=== PATIENT | male | born 1945 | race Caucasian/White ===

== ENCOUNTER 2019-10-13 07:48 | Outpatient (CLI) | payer MEDICARE, OTHER, SELFPAY ==
--- NOTE | 2019-10-13 07:54 | CT_ITS ---
WS: [id number] CT CHEST WITH INTRAVENOUS CONTRAST HISTORY: ABNORMAL XRAY WITH SINGLE PULMONARY NODULE TECHNIQUE: Contiguous 5 mm axial imaging performed on the thorax. Coronal and sagittal reformats are submitted. All CT scans at [facility] use at least one of these dose optimization techniq ues: automated exposure control; mA and/or kV adjustment per patient size (includes targeted exams wh ere dose is matched to clinical indication); or iterative reconstruction. CONTRAST: Omnipaque 300; 95 mL IV. DLP: 847.37 mGycm COMPARISON: Chest radiograph 10/05/2019 Lungs and central airway: Lungs are hyperexpanded with changes of emphysema. Subpleural nodule LEFT l ower lobe measures 1.4 x 1.3 x 1.4 cm. Masses in the posterior superior segment and abuts the pleura. There is adjacent small reactive of pleural fluid. There is an additional 5 mm nodule LEFT upper lob e, image 33 of series 3. Pleura: Small layering LEFT pleural effusion. Heart and pericardium: Normal size heart. No pericardial effusion. Mediastinum and luisito: No mediastinum or hilar adenopathy. Vessels: Normal size aortic and pulmonary artery. Chest wall and lower neck: Small axillary lymph nodes. No enlarged lymph nodes. Upper abdomen: Visualized liver and gallbladder are negative. There is mild thickening of the LEFT ad renal gland no discrete mass. Osseous structures: Degenerative disc disease and osteophytes throughout the thoracic spine. No osteo blastic or osteolytic bone disease. CT/CT chest w con* [id number] IMPRESSION: 1. LEFT lower lobe subpleural nodule measures 1.4 x 1.3 x 1.4 cm with adjacent small effusion. Suspicious for neoplasm. Recommend PET/CT imaging for further evaluation. 2. Additional 5 mm nodule LEFT upper lobe indeterminate for malignancy. 3. No adenopathy. 4. Mild thickening and hyperplasia LEFT adrenal gland. This can also be reeval uated by PET/CT. 5. Mild emphysema.
[2019-10-13 08:25] LABS: Blood Urea Nitrogen 8 mg/dL (8-23)
[2019-10-13] MEDS: iohexol 300 mg/mL 100 mL Btl IV (08:39)
== END 2019-10-13 07:49 | disposition home or self-care (01) ==
LOC: RADWPI 07:54
PROVIDERS: Family Provider Family Medicine; PCP Family Medicine; Visit Provider Family Medicine
DX: R91.8 Other nonspecific abnormal finding of lung field (principal); R91.1 Solitary pulmonary nodule; J90 Pleural effusion, not elsewhere classified; J43.9 Emphysema, unspecified
CPT/HCPCS: 71260; 82565; 84520; Q9967

== ENCOUNTER 2019-11-23 11:04 | Outpatient (CLI) | payer MEDICARE, OTHER, SELFPAY ==
--- NOTE | 2019-11-23 14:19 | PFTS_ITS ---
Date of Study:11/23/19 Date of Dictation: MECHANICS: Forced vital capacity (FVC) is normal. Forced expiratory volume in one second (FEV1) is reduced. FEV1/FVC is reduced. FLOW VOLUME LOOP: Reduced flow at all lung volumes with significant scooping. LUNG VOLUMES: Total lung capacity (TLC) is normal. Residual volume (RV) is elevated. DIFFUSING CAPACITY FOR CARBON MONOXIDE: Moderately reduced. INTERPRETATION: The pulmonary function tests are consistent with moderate obstruction. Lung volumes are consistent with air trapping. Gas exchange (DLCO) is moderately reduced. MTDD
== END 2019-11-23 11:05 | disposition home or self-care (01) ==
LOC: RT 11:05
PROVIDERS: PCP Family Medicine; Visit Provider Internal Medicine Critical Care Medicine
DX: R91.1 Solitary pulmonary nodule (principal)
CPT/HCPCS: 94010; 94726; 94729

== ENCOUNTER 2019-11-26 06:04 | Day surgery (SDC) | payer MEDICARE, OTHER, SELFPAY ==
[2019-11-25 15:41] VITALS: BMI 21.5
[2019-11-26] VITALS (8 sets, daily range): BP systolic 99–133; BP diastolic 63–75; PULSE 91–98; RESP 16–20; TEMP 36.7–36.9; O2SAT 93–98
[2019-11-26] MEDS: sodium chloride 0.9% 1,000 ML 30 ML IV (06:41)
--- NOTE | 2019-11-26 06:41 | P.ANESASSM_ITS ---
Pre-Anesthetic Assessment Pre-Anesthetic Assessment: Height/Weight: Height 1.78 m Weight 68.039 kg Temp Pulse Resp BP Pulse Ox 98.4 F 98 18 133/71 98 11/26/19 06:28 11/26/19 06:28 11/26/19 06:28 11/26/19 06:28 11/26/19 06:28 Preop Diagnosis: suspected lung cancer Proposed Procedure: Operation Date: 11/26/19 07:00 Proposed Procedures p Bronchoscopy with a Thoracentsis(Not Applicable) - Jordy Schmidt MD s Ebus(Not Applicable) - Jordy Schmidt MD Familial anesthetic complications: None Was Beta Casandra taken within 24 hours: N/A Last intake: Intake Last Liquid Date 11/25/19 Last Liquid Time 18:00 Last Solid Date 11/25/19 Last Solid Time 18:00 Social: Social History: Tobacco and No alcohol Exam: Pre-Anes Outpt Exam: alert, oriented x 3, clear to auscultation bilat erally and regular rate & rhythm Airway: Cervical ROM: WNL MP: 3 Dentition: Other (missing) Pulmonary: Pulmonary: COPD CV/HEM: CV/HEM: HTN : : None reported Hepatic: Hepatic: None reported GI: GI: GERD Metabolic: Metabolic: Hyperlipidemia Musc/skel: Musc/skel: None reported Neuropsych: Neuropsych: None reported Anesthetic Plan: ASA status: 3 Anesthesia: MAC Risk of > 500 ml blood loss (7ml/kg in children): No PFSH Anesthesia PFSH: Medical History COPD (chronic obstructive pulmonary disease) DVT (deep venous thrombosis) GERD (gastroesophageal reflux disease) HTN (hypertension) Hyperlipidemia Lung nodule Surgical History History of back surgery Family History Other CAD (coronary artery disease) Social History Smoking and tobacco status: current every day smoker cigarettes Packs smoked per day: 1 Years cigarettes smoked: 45 Second hand smoke exposure: Yes Alcohol intake: current Alcohol type: wine Lives independently: Yes Household members: spouse Marital status: Life Partner Current occupational status: retired History of recent travel: No Current gender identity: Male Data Anesthesia Cardiac Studies: No Data to Display
--- NOTE | 2019-11-26 06:43 | W.PM.OPSUD ---
Surgery/Procedure H&P Update DATE OF PROCEDURE: November 26, 2019 DATE H&P PERFORMED: 11/12/19 H&P UPDATE INFORMATION: I have reviewed H&P completed within last 30 days, I have examined patient prior to procedure and No changes to prior documentation PREOP DIAGNOSIS: suspected lung cancer PLANNED PROCEDURE: Bronchoscopy with inspection of the airway, possible endobronchial transbronchial biopsies, bronchoalveolar lavage, left-sided thoracentesis and control of bleeding. Operation Date: 11/26/19 07:00 Proposed Procedures p Bronchoscopy with a Thoracentsis(Not Applicable) - Jordy Schmidt MD s Ebus(Not Applicable) - Jordy Schmidt MD
--- NOTE | 2019-11-26 08:02 | P.OP_ITS ---
Operative Report Date of procedure: November 26, 2019 Pre-op Diagnosis: suspected lung cancer/left-sided pleural effusion Post-op diagnosis: same Brief History: 74-year-old gentleman with suspected lung malignancy and left- sided pleural effusion came in for left-sided thoracentesis and endobronchial sound guided transbronchial depression of left hilar lymph nodes. Procedure: Name of the procedure: Left thoracentesis. Indication: Suspicion for malignant pleural effusion Anesthetics: Local anesthesia with 1% lidocaine. IV pain medication: None. Description of the procedure: The procedure was explained to the patient in detail including the risks and a consent was obtained. The left hemithorax was scanned with ultrasound to find a safe fluid pocket. Moderate free-flowing fluid was noted. The plankton sign was positive Following identification of the fluid pocket the site was marked. The site was cleaned using sterile technique. Lidocaine 1% was injected into the skin and the subcutaneous tissue. Subsequently, the periosteum in the parietal pleural was also anesthetized using lidocaine. The pleural space was entered in the posterior axillary line in the left eighth intercostal space. Straw-colored fluid was aspirated. About 1050cc of fluid was aspirated. Sample: The pleural fluid was sent for cell count and differential, pH, protein, LDH, albumin, Gram stain and culture, fungal stain and culture, AFB stain and culture and cytology.
[2019-11-26] MEDS: cetylpyridinium Lozenge 1 EACH MUCOUS MEM (08:38)
[2019-11-26 08:39] LABS: Mononuclear %, Pleural Fluid 51 %; Polynuclear Cells, Pleural % 49 %
--- NOTE | 2019-11-26 08:49 | SUR.PHASEI ---
[id number] MOSLEY AT BEDSIDE AND DR AKHTAR AT BEDSIDE TALKED WITH PT AND WILL CALL PT'S , PT COUGHING OCCASIONALLY BUT GOOD RESP EFFORT NON LABORED SATS ON RA [phone] with no distress lung sounds bilat with diminished bases dressing to lt back d/i
--- NOTE | 2019-11-26 08:57 | PM.MISC ---
Miscellaneous Note Purpose of Documentation: Anesthesia event Note: After draining of pleural effusion and before commencing bronchoscopy, patient lost ETCO2 and had difficulty moving air. Breath sounds absent and albuterol was administered for suspected bronchospasm. However, PPV was noted to expand the abdominal cavity and accidental extubation was suspected. While anesthesia prepared for re-intubation, proceduralist was asked to place bronchoscope through ETT to confirm placement or misplacement. ETT was confirmed to be in esophagus with bronchoscoope and patient was expediently intubated using glidescope, which showed somewhat laterally displaced vocal cords. Ixnvouhrb-xykbhzy-dqwhet pressure was applied to improve visualization. With re-intubation, O2 sat quickly improved and ETCo2 was confirmed. Atropine 0.3 mg IV was given for developing bradycardia (35 bpm) OG was placed to suction gastric air and suggamadex was administered. 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 He was then extubated. patient had stable VSS in pacu and he showed no evidence of any recall of events and complained of no oral/airway damage at this time. Intraoperative events were explained to him and to the individual (mariella) who accompanied him to his surgery today. Both showed understanding of events and had no further questions. Recommend glidescope for subsequent intubations.
[2019-11-26 09:24] LABS: Appearance, Pleural Fluid CLEAR (CLEAR); Color, Pleural Fluid Pale Yellow (Pale Yellow); LDH Pleural Fluid 174 U/L; Pleural Fluid Albumin 2.8 g/dL; Triglycerides, Pleural Fluid 19 mg/dL
[2019-11-26 09:59] LABS: PATH Referal YES
== END 2019-11-26 09:06 | disposition home or self-care (01) ==
PROVIDERS: PCP Family Medicine; Visit Provider Internal Medicine Critical Care Medicine
PROC: (CPT 32554; principal; 2019-11-26 07:00)
DX: J90 Pleural effusion, not elsewhere classified (principal); J44.9 Chronic obstructive pulmonary disease, unspecified; I10 Essential (primary) hypertension; K21.9 Gastro-esophageal reflux disease without esophagitis; E78.5 Hyperlipidemia, unspecified; Z86.718 Personal history of other venous thrombosis and embolism; Z82.49 Family history of ischemic heart disease and other diseases of the circulatory system; F17.210 Nicotine dependence, cigarettes, uncomplicated
CPT/HCPCS: 32554; 12345; 80500; 82042; 82945; 83615; 83986; 84478; 87015; 87070; 87075; 87116; 87205; 87206; 87801; 88112; 88305; 89050; J0461; J2001; J2704; J3010; J3490; J3535; J7030

== ENCOUNTER 2019-12-10 08:09 | Outpatient (CLI) | payer MEDICARE, OTHER, SELFPAY ==
--- NOTE | 2019-12-10 08:17 | XR_ITS ---
WS: [id number] PA and lateral chest, 12/10/2019 Clinical Data: Pleural effusion Comparison: PA and lateral chest, 10/05/2019. Findings: There is a faint nodule overlying the midportion left seventh rib which is difficult to see . This may represent the nodule noted on the prior chest x-ray. There is elevation of the left diaphr agm with left pleural reaction. There is depression of the right diaphragm. No right lung nodules or masses are seen. The heart is normal. No pneumonia or pneumothorax is seen. The pulmonary vascularity is not increased. XR/XR chest 2V* [id number] Impression: 1. Faint nodule overlying the left seventh rib. 2. Left pleural reaction. 3. No other nodules or masses are seen in the lungs.
== END 2019-12-10 08:10 | disposition home or self-care (01) ==
PROVIDERS: PCP Family Medicine; Visit Provider Internal Medicine Critical Care Medicine
DX: J90 Pleural effusion, not elsewhere classified (principal)
CPT/HCPCS: 71046

== ENCOUNTER 2019-12-21 10:44 | Day surgery (SDC) | payer MEDICARE, OTHER, SELFPAY ==
[2019-12-18 11:42] VITALS: BMI 21.5
[2019-12-21 11:00] VITALS: BP 131/73; PULSE 97; RESP 20; TEMP 37.3; O2SAT 98
[2019-12-21] MEDS: sodium chloride 0.9% 1,000 ML 30 ML IV (11:37)
--- NOTE | 2019-12-21 11:48 | P.ANESASSM_ITS ---
Pre-Anesthetic Assessment Pre-Anesthetic Assessment: Height/Weight: Height 1.78 m Weight 68.039 kg Temp Pulse Resp BP Pulse Ox 99.1 F 97 20 H 131/73 98 12/21/19 11:00 12/21/19 11:00 12/21/19 11:00 12/21/19 11:00 12/21/19 11:00 Preop Diagnosis: suspected lung cancer/left-sided pleural effusion Proposed Procedure: Operation Date: 12/21/19 12:00 Proposed Procedures p Ebus(Not Applicable) - Jordy Schmidt MD s Thoracentesis(Not Applicable) - Jordy Schmidt MD Was Beta Casandra taken within 24 hours: N/A Last intake: Intake Last Liquid Date 12/21/19 Last Liquid Time 08:00 Last Solid Date 12/20/19 Last Solid Time 22:00 Last Intake: 00:00 Social: Social History: Alcohol (4beers a day) and Tobacco Packs per day: 1 ppd Pack years: 45 Exam: Pre-Anes Outpt Exam: alert, oriented x 3 and clear to auscultation bilaterally Airway: Submandibular: WNL Cervical ROM: WNL MP: 1 Pulmonary: Pulmonary: COPD and CABRERA CV/HEM: CV/HEM: DVT (1 year ago ) and HTN : : None reported Hepatic: Hepatic: None reported GI: GI: GERD (controlled ) Metabolic: Metabolic: None reported Musc/skel: Musc/skel: None reported Neuropsych: Neuropsych: None reported Anesthetic Plan: ASA status: 3 Anesthesia: Anesthesia Evaluation and MAC Meds/Allergies Current Medications: Current Medications Generic Name Dose Route Start Last Admin Trade Name Freq PRN Reason Stop Dose Admin Sodium Chloride 1,000 mls @ 30 ml s/hr 12/20/19 19:15 12/21/19 11:37 Sodium Chloride 0.9% IV 12/21/19 19:14 30 mls/hr .Q24H NIKOLAI Administration PFSH Anesthesia PFSH: Medical History COPD (chronic obstructive pulmonary disease) DVT (deep venous thrombosis) GERD (gastroesophageal reflux disease) HTN (hypertension) Hyperlipidemia Lung nodule Surgical History History of back surgery Family History Other CAD (coronary artery disease) Social History Smoking and tobacco status: current every day smoker cigarettes Packs smoked per day: 1 Years cigarettes smoked: 45 Second hand smoke exposure: Yes Alcohol intake: current Alcohol type: wine Lives independently: Yes Household members: spouse Marital status: Life Partner Current occupational status: retired History of recent travel: No Current gender identity: Male Data Anesthesia Cardiac Studies: No Data to Display
--- NOTE | 2019-12-21 12:18 | W.PM.OPSUD ---
Surgery/Procedure H&P Update DATE OF PROCEDURE: December 21, 2019 DATE H&P PERFORMED: 11/26/19 H&P UPDATE INFORMATION: I have reviewed H&P completed within last 30 days, I have examined patient prior to procedure and No changes to prior documentation PREOP DIAGNOSIS: suspected lung cancer/left-sided pleural effusion PLANNED PROCEDURE: Bronchoscopy with inspection of the airway, endobronchial ultrasound-guided transbronchial needle aspiration of lymph nodes, left-sided thoracentesis. Operation Date: 12/21/19 12:00 Proposed Procedures p Ebus(Not Applicable) - Jordy Schmidt MD s Thoracentesis(Not Applicable) - Jordy Schmidt MD
--- NOTE | 2019-12-21 12:58 | CT_ITS ---
WS: [id number] CT CHEST TECHNIQUE: Noncontrast CT of the chest with coronal and sagittal reformatted images. CLINICAL INFORMATION: Suspected lung malignancy status post thoracentesis with concern for pneumothor ax COMPARISON: October 13, 2019 DLP: 566.[address] scans at [facility] use at least one of these dose optimization techniques: automat ed exposure control; mA and/or kV adjustment per patient size (includes targeted exams where dose is matched to clinical indication); or iterative reconstruction. FINDINGS: Small left pleural effusion. No pneumothorax. Both lungs are well aerated. Slight atelectasis in the lingula. Stable noncalcified nodule in the left lower lobe subpleural in location measuring 10 mm. Ri ght lung is well aerated. No mediastinal or hilar lymphadenopathy. No axillary lymphadenopathy. Adrenal glands are normal. Normal GE junction. CT/CT chest wo con [id number] IMPRESSION: 1. Small left pleural effusion. No pneumothorax. 2. Stable left lower lobe subpleural pulmonary nodule measuring 10 mm. 3. No other significant changes.
--- NOTE | 2019-12-21 12:59 | PM.ACPR ---
Procedure/Consent Time out: Time Out Performed: Yes Consent: Consent for Procedure: Consent obtained from patient Procedure Narrative: Name of the procedure: Left thoracentesis. Indication: Suspicion for malignant pleural effusion Anesthetics: Local anesthesia with 1% lidocaine. IV pain medication: None. Description of the procedure: The procedure was explained to the patient in detail including the risks and a consent was obtained. The left hemithorax was scanned with ultrasound to find a safe fluid pocket. Small free-flowing fluid was noted. There was no complexity. Following identification of the fluid pocket the site was marked. The site was cleaned using sterile technique. Lidocaine 1% was injected into the skin and the subcutaneous tissue. Subsequently, the periosteum in the parietal pleural was also anesthetized using lidocaine. The pleural space was entered in the posterior axillary line in the left seventh intercostal space. Straw-colored fluid was aspirated. About 160 cc of fluid was aspirated. Sample: The pleural fluid was sent for cell count and differential, pH, protein, LDH, albumin, Gram stain and culture, fungal stain and culture, AFB stain and culture and cytology. Complication: Postprocedure, the patient started complaining of inspiratory chest pain. I will obtain a CT scan to evaluate for pneumothorax as well as the left-sided lung lesion he had in the past which is likely in the process of resolving. Acute Procedures Epistaxis Control: Time out performed: Yes
[2019-12-21 13:02] VITALS: BP 149/78; PULSE 90; RESP 20; TEMP 37.3; O2SAT 97
--- NOTE | 2019-12-21 13:03 | SUR.PHASEII ---
DRESSING IN PLACE .NO BLOOD OR DRAINAGE NOTED.
[2019-12-21 13:23] LABS: Body Fluid Polynuclear #Cells 0.035 10^3/uL; Body Fluid WBC 2264 /uL; Monocytes # Body Fluid 2.229 10^3/uL; RBC, Body Fluid 4 10^3/uL (0-0)
--- NOTE | 2019-12-21 13:28 | SUR.PHASEII ---
CHEST CT DONE. PT RESTING COMFORTABLY. NO DYSPNEA NOTED.
--- NOTE | 2019-12-21 13:37 | SUR.OPER ---
ebus scope and bronchoscopy scope not used
[2019-12-21 14:05] LABS: Apprearance, Body Fluid CLEAR (CLEAR); Color, Body Fluid YELLOW (PALE YELLOW); LDH Pleural Fluid 137 U/L; PATH Referral YES
== END 2019-12-21 13:55 | disposition home or self-care (01) ==
PROVIDERS: PCP Family Medicine; Visit Provider Internal Medicine Critical Care Medicine
PROC: (CPT 32554; 2019-12-21 12:00)
DX: C34.90 Malignant neoplasm of unspecified part of unspecified bronchus or lung (principal); J90 Pleural effusion, not elsewhere classified; J44.9 Chronic obstructive pulmonary disease, unspecified; I10 Essential (primary) hypertension; Z86.718 Personal history of other venous thrombosis and embolism; K21.9 Gastro-esophageal reflux disease without esophagitis; E78.5 Hyperlipidemia, unspecified; F17.210 Nicotine dependence, cigarettes, uncomplicated
CPT/HCPCS: 32554; 12345; 71250; 80500; 82945; 83615; 83986; 87015; 87070; 87075; 87116; 87205; 87206; 87801; 88112; 88305; 89050; J0330; J2704; J3010; J3490; J7030

== ENCOUNTER 2020-03-23 09:44 | Outpatient (CLI) | payer MEDICARE, OTHER, SELFPAY ==
--- NOTE | 2020-03-23 10:00 | CT_ITS ---
WS: [id number] CT CHEST TECHNIQUE: Noncontrast CT of the chest with coronal and sagittal reformatted images. CLINICAL INFORMATION: Lung Nodule COMPARISON: CT December 21, 2019 DLP: 817.[address] scans at [facility] use at least one of these dose optimization techniques: automat ed exposure control; mA and/or kV adjustment per patient size (includes targeted exams where dose is matched to clinical indication); or iterative reconstruction. FINDINGS: Again seen is the left lower lobe subpleural pulmonary nodule with slight pleural thickening. This me asures approximately 10 mm unchanged from December 21, 2019. In addition, this is unchanged from October 13, 2019. Prior PET/CT demonstrated FDG uptake suspicious for neoplasm. Subsegmental atelectasis left lower lobe. Tiny left pleural effusion. Mild chronic emphysematous randle ges. No mediastinal or hilar lymphadenopathy. Normal visualized thyroid gland. No axillary lymphadeno lily. Adrenal glands are normal. Normal caliber upper abdominal aorta. CT/CT chest wo con [id number] IMPRESSION: 1. Stable 10 mm nodule left lower lobe measuring 10 mm suspicious for neoplasm . This is unchanged since October 13, 2019 and showed FDG uptake on the prior PET/C T November 14, 2019 2. Mild chronic emphysematous changes. No new pulmonary nodules. 3. Small left pleural effusion with subsegmental atelectasis left lung base. 4. No mediastinal or hilar lymphadenopathy.
== END 2020-03-23 09:45 | disposition home or self-care (01) ==
LOC: RADWPI 09:48
PROVIDERS: Family Provider Family Medicine; PCP Family Medicine; Visit Provider Internal Medicine Critical Care Medicine
DX: R91.1 Solitary pulmonary nodule (principal); J90 Pleural effusion, not elsewhere classified; J98.11 Atelectasis
CPT/HCPCS: 71250

== ENCOUNTER 2020-09-07 09:00 | Outpatient (CLI) | payer MEDICARE, OTHER, SELFPAY ==
--- NOTE | 2020-09-07 | US_ITS ---
WS: [id number] ULTRASOUND ABDOMEN CLINICAL INFORMATION: ELEVATED LFTS COMPARISON: None. FINDINGS: Liver Size: Enlarged Craniocaudal length: 16.9 cm. Echogenicity: Coarse with fatty infiltration Surface nodularity: None. Mass (size and location): None. Bile ducts Intrahepatic ducts: Normal. Common bile duct diameter: 4.5 cm. Gallbladder Normal. Gallstones: None. Gallbladder sludge: None. Gallbladder wall thickening: None. Pericholecystic fluid: None. Sonographic Davenport sign: Absent. Pancreas Normal as visualized. Right kidney: Normal. Hydronephrosis: None. Size: 10.8 cm x 4.7 cm x 5.1 cm Abdominal aorta and IVC Visualized portions are normal. Ascites: None. US/US liver [id number] IMPRESSION: 1. Hepatomegaly with diffuse fatty infiltration. 2. Gallbladder is normal. 3. No hydronephrosis in right kidney. 4. Normal common bile duct.
== END 2020-09-07 09:01 | disposition home or self-care (01) ==
PROVIDERS: PCP Family Medicine; Visit Provider Family Medicine
DX: R94.5 Abnormal results of liver function studies (principal); R16.0 Hepatomegaly, not elsewhere classified; K76.0 Fatty (change of) liver, not elsewhere classified
CPT/HCPCS: 76705

== ENCOUNTER 2020-10-24 08:17 | Emergency (ER) | payer MEDICARE, OTHER, SELFPAY ==
[2020-10-24 08:25] VITALS: BP 150/102; PULSE 103; RESP 15; TEMP 36.7; O2SAT 96; BMI 21.5
--- NOTE | 2020-10-24 08:27 | XRR_ITS ---
PROCEDURE INFORMATION: Exam: XR Left Shoulder Exam date and time: 10/24/2020 8:30 AM Age: 75 years old Clinical indication: Pain; Shoulder; Bilateral TECHNIQUE: Imaging protocol: XR Left shoulder. Views: 2 or more views. COMPARISON: No relevant prior studies available. FINDINGS: Bones/joints: There is mild superior subluxation left humeral head which may represent some rotator cuff pathology. Mild degenerative changes are present in the acromioclavicular joint. No fracture is identified. Soft tissues: Normal. XR/XR shoulder LT min 2V* [id number] IMPRESSION: Mild degenerative changes.
--- NOTE | 2020-10-24 08:27 | XRR_ITS ---
PROCEDURE INFORMATION: Exam: XR Right Shoulder Exam date and time: 10/24/2020 8:30 AM Age: 75 years old Clinical indication: Right; Patient HX: C/O shoulder pain. No known injury. TECHNIQUE: Imaging protocol: XR Right shoulder. Views: 2 or more views. COMPARISON: CR (CHEST, ) 10/24/2020 8:29 AM FINDINGS: Bones/joints: There is degenerative change in the right acromioclavicular joint and also within the glenohumeral joint. There is narrowing of the subacromial space which may represent some rotator cuff pathology. No fracture is identified. Soft tissues: Normal. XR/XR shoulder RT min 2V* [id number] IMPRESSION: 1. Degenerative changes. 2. No fracture is identified.
--- NOTE | 2020-10-24 08:41 | W.ED.EXTPRO ---
HPI - Extremity Problem General: Chief complaint: Extremity Problem,Nontraumatic Stated complaint: Pain in Both Shoulders Time Seen by Provider: 10/24/20 08:20 History of Present Illness: HPI Narrative: 75-year-old male who presents to the emergency room with complaint of bilateral shoulder pain that began 2 weeks ago and has been progressively worsening overnight became severe. He cannot recall a precipitating event or trauma. Is difficult time doing even a few degrees of abduction with his left arm is able to do 20 to 30 degrees of abduction in the right. Limited external rotation as well. He states any movement worsens he denies chest pain or shortness of breath. MD Complaint: joint pain Onset (ago): week(s) (2) Pain Consistency: constant Location: left, right and upper extremity (Shoulder) Quality: sharp Relieving factors: immobilization and movement Exacerbating factors: range of motion Associated symptoms: Deny arthralgias, chest pain, fever(s), myalgias, rash or short of breath Review of Systems Const: Denies: fever(s) ENMT: Denies: throat pain, ear or mastoid pain, nasal discharge or nasal congestion Card: Denies: chest pain Resp: Denies: dyspnea, productive cough or non-productive cough GI: Denies: abdominal pain, nausea, vomiting, hematemesis, coffee ground emesis, diarrhea, constipation, bloating, hematochezia or melena : Denies: flank pain, dysuria, urinary frequency or urinary urgency Skin/Breast: Denies: rash PFSH ED PFSH: Medical History COPD (chronic obstructive pulmonary disease) DVT (deep venous thrombosis) GERD (gastroesophageal reflux disease) HTN (hypertension) Hyperlipidemia Lung nodule Surgical History History of back surgery Family History Other CAD (coronary artery disease) Social History Smoking and tobacco status: current every day smoker cigarettes Packs smoked per day: 1 Years cigarettes smoked: 45 Second hand smoke exposure: Yes Alcohol intake: current Alcohol type: wine Lives independently: Yes Household members: spouse Marital status: Life Partner Current occupational status: retired History of recent travel: No Current gender identity: Male Physical Exam Const: COMMON NORMALS: no acute distress GENERAL APPEARANCE: cooperative and comfortable ORIENTATION/CONSCIOUSNESS: Yes awake, Yes oriented to person, Yes oriented to place and Yes oriented to time HENMT: COMMON NORMALS: hearing grossly normal bilaterally Eye: COMMON NORMALS: Equal, round and reactive pupils present, EOMs intact bilaterally, conjunctivae normal and no scleral icterus CONJUNCTIVA: Yes conjunctivae normal PUPIL: Yes Equal, round and reactive pupils present Lymph: LYMPHATIC: no lymphadenopathy noted and no lymphedema noted Resp: COMMON NORMALS: normal respiratory effort, No retractions, No use of accessory muscles and clear to auscultation bilaterally AUSCULTATION: clear to auscultation bilaterally Cardio: COMMON NORMALS: regular rate, regular rhythm and No murmurs present (Cardio) RATE: regular rate RHYTHM: regular rhythm Extremity: COMMON NORMALS: normal to inspection, capillary refill normal, no clubbing, cyanosis or edema, no calf tenderness and no pedal edema Neuro: SENSORIUM/ORIENTATION: Yes oriented to person, Yes oriented to place and Yes oriented to time Skin: COMMON NORMALS: no rashes or lesions noted GENERAL SKIN EXAM: no rashes or lesions noted Course Vital Signs: Vital signs: Vital Signs Temperature 98.0 F 10/24/20 08:25 Pulse Rate 103 H 10/24/20 08:25 Respiratory Rate 15 10/24/20 08:25 Blood Pressure 150/102 10/24/20 08:25 Pulse Oximetry 96 10/24/20 08:25 MDM - Extremity (Nontraumatic) MDM Narrative: Medical decision making narrative: No acute fractures. Will start on anti-inflammatories follow-up with Ortho via case management. Activity as tolerated. Discharge Plan Discharge Patient Disposition: Home Clinical Impression: Shoulder arthralgia Condition: Stable Prescriptions: New diclofenac sodium 75 mg tablet,delayed release (DR/EC) 75 mg PO Q12H PRN (Reason: pain) Qty: 20 RF: 0 No Action aspirin [Adult Aspirin Regimen] 81 mg tablet,delayed release (DR/EC) 81 mg PO DAILY RF: 0 omeprazole 40 mg capsule,delayed release(DR/EC) 40 mg PO DAILY RF: 0 simvastatin 10 mg tablet 10 mg PO DAILY RF: 0 losartan 50 mg tablet 50 mg PO DAILY RF: 0 amlodipine 5 mg tablet 5 mg PO DAILY RF: 0 Breo Ellipta 200-25 mcg/dose blister with device 1 inh INHALATION DAILY Qty: 60 RF: 3 Discharge Orders: Discharge ED (Routine); Ordered 10/24/20 Ordered By: Buddy Maya Referrals: Bryson Jama MD [Primary Care Provider] - Discharge Diet: Usual diet Discharge Activity: Increase activity as tolerated Patient Instructions: Opioid Safety Activity Restrictions/Additional Instructions: His management will call to make arrangements for you to see orthopedics. Coding Level of Care Code ED [employer] for [employer] Exam Comprehensive
[2020-10-24] MEDS: ketorolac 30 mg/mL INJ IM (09:30)
[2020-10-24 09:42] VITALS: BP 147/94; PULSE 99; RESP 18; O2SAT 97
--- NOTE | 2020-10-25 10:10 | DCPLANNER ---
manager library had message to schedule a follow up appointment for patient with ortho for shoulder pain. manager library called the ortho clinic, spoke with Eli, gave clinic patients information. manager library was told that patients information would be printed and reviewed. Clinic will call patient with appointment information.
--- NOTE | 2020-10-26 12:51 | DCPLANNER ---
Patient has a follow up appointment scheduled for Saturday at 8:[address] Harrell. Clinic will call patient with appointment information.
--- NOTE | 2020-12-21 08:15 | DCPLANNER ---
Patient had an appointment scheduled for 10.31.[address] Harrell at [facility] - patient did attend appointment.
== END 2020-10-24 09:43 | disposition home or self-care (01) ==
PROVIDERS: Emergency Provider Family Medicine; PCP Family Medicine
DX: M25.511 Pain in right shoulder (principal); M25.512 Pain in left shoulder; Z79.82 Long term (current) use of aspirin; J44.9 Chronic obstructive pulmonary disease, unspecified; I10 Essential (primary) hypertension; E78.5 Hyperlipidemia, unspecified; F17.210 Nicotine dependence, cigarettes, uncomplicated
CPT/HCPCS: 73030; 96372; 99283; J1885

== ENCOUNTER 2021-12-23 10:10 | Emergency (ER) | payer MEDICARE, OTHER, SELFPAY ==
[2021-12-23] VITALS (7 sets, daily range): BP systolic 131–149; BP diastolic 76–97; PULSE 70–78; RESP 18–28; TEMP 36.7; O2SAT 95–100; BMI 22.2
--- NOTE | 2021-12-23 10:41 | XRR_ITS ---
PROCEDURE INFORMATION: Exam: XR Chest Exam date and time: 12/23/2021 11:21 AM Age: 76 years old Clinical indication: Cough and dyspnea; Additional info: Dyspnea/cough TECHNIQUE: Imaging protocol: Radiologic exam of the chest. Views: 1 view. COMPARISON: CT chest con [id number] 03/23/2020 9:52 AM FINDINGS: Lungs: 13 mm pulmonary nodule left mid lung. Emphysema. Lungs are well aerated without a focal area of consolidation. Pleural spaces: Unremarkable. No pleural effusion. No pneumothorax. Heart/Mediastinum: Unremarkable. No cardiomegaly. Bones/joints: Unremarkable. XR/XR chest 1V portable [id number] IMPRESSION: 1. 13 mm pulmonary nodule left mid lung. This was noted on the prior CT dated 03-23-20. Correlate. Consider follow-up CT. 2. Lungs are well aerated without a focal area of consolidation.
--- NOTE | 2021-12-23 10:52 | PC.NURSE ---
Pulse ox reading error of 86%. Correct Pulse ox 97 % RA
[2021-12-23 10:59] LABS: Basophils # 0.2 10^3/uL (0.0-0.1); Eosinophils # 0.5 10^3/uL (0.0-0.8); Eosinophils % 5.3 %; Hematocrit 43.6 % (42.0-52.0); Hemoglobin 13.8 g/dL (11.7-16.6); Lymphocytes # 1.6 10^3/uL (0.8-4.8); Lymphocytes % 18.8 %; Mean Corpuscular HGB Conc 31.7 g/dL (30.0-36.0); Mean Corpuscular Volume 110.7 fl (80-94); Mean Platelet Volume 9.3 fL (7.4-10.4); Monocytes # 0.9 10^3/uL (0.2-0.9); Monocytes % 10.2 %; Neutrophils # 5.41 10^3/uL (1.8-7.7); Neutrophils % 63.5 %; Nucleated Red Blood Cells % 0 %; Platelet Count 302 10^3/cmm (130-400); Red Blood Count 3.94 10^6/uL (4.1-5.3); Red Cell Distribution Width 21.1 % (12.1-15.1); White Blood Count 8.5 10^3/uL (4.0-10.0)
--- NOTE | 2021-12-23 11:01 | ECG_ITS ---
[facility] Test Date: 2021-12-23 Pat Name: Phill Felder Department: Room: Gender: Male Sap [employer] Architect: : 1945 Requested By: Buddy Toussaint Order Number: [id number] Alvni MD: Bravo Baker M.D. Measurements Intervals [place] Rate: 78 P: MO: QRS: 25 QRSD: 109 T: 40 QT: 396 QTc: 453 Interpretive Statements ATRIAL FIBRILLATION ABNORMAL RHYTHM ECG No previous ECG available for comparison Electronically Signed On 12-23-2021 11:58:32 CDT by Bravo Baker M.D. [id number]
--- NOTE | 2021-12-23 11:22 | ED_ITS ---
HPI - SOB/Dyspnea General: Chief Complaint: Shortness of Breath/Dyspnea Stated Complaint: SOB Time Seen by Provider: 12/23/21 10:41 Source: patient Mode of arrival: ambulatory History of Present Illness: HPI Narrative: 76-year-old male presents emergency room complaining shortness of breath some mild chest pressure. Interestingly it is only when he lies down. He does have some moderate wheezes he has a history of smoking he has some COPD. He is not currently on any oxygen. He is on inhaled medications for his COPD. He has some mild chest discomfort which she describes as a very vague does not radiate he denies any fever sweats or chills or productive cough. MD elicited complaint: shortness of breath Onset (ago): week(s) Timing: constant and progressively worsening Severity: mild Exacerbating factors: lying flat and exertion Relieving factors: upright position Associated symptoms: Reports orthopnea; Deny abdominal pain, chest congestion, chest pain, cough, diaphoresis, dizziness, extremity pain, fever(s), hemoptysis, lightheadedness, myalgias, nausea, palpitations, paresthesias, polydipsia, rash, sense of impending doom, syncope or vomiting Treatment prior to arrival: none Review of Systems Const: Denies: fever(s), chills, fatigue, malaise or diaphoresis ENMT: Denies: throat pain, ear or mastoid pain, nasal discharge or nasal congestion Card: Reports: orthopnea; Denies: chest pain, palpitations, lightheadedness or syncope Resp: Reports: dyspnea and wheezing; Denies: hemoptysis or chest congestion GI: Denies: abdominal pain, nausea or vomiting : Denies: flank pain, dysuria, urinary frequency or urinary urgency Musc: Denies: extremity pain Skin/Breast: Denies: rash or pruritus Neuro: Denies: dizziness Endo: Denies: polydipsia PFS ED PFSH: Medical History COPD (chronic obstructive pulmonary disease) DVT (deep venous thrombosis) GERD (gastroesophageal reflux disease) HTN (hypertension) Hyperlipidemia Lung nodule Surgical History History of back surgery Family History Other CAD (coronary artery disease) Social History Smoking and tobacco status: current every day smoker cigarettes Packs smoked per day: 1 Years cigarettes smoked: 45 Second hand smoke exposure: Yes Alcohol intake: current Alcohol type: wine Lives independently: Yes Household members: spouse Marital status: Life Partner Current occupational status: retired History of recent travel: No Current gender identity: Male Physical Exam Const: COMMON NORMALS: no acute distress GENERAL APPEARANCE: cooperative and comfortable ORIENTATION/CONSCIOUSNESS: Yes awake, Yes oriented to person, Yes oriented to place and Yes oriented to time HENMT: COMMON NORMALS: normocephalic, atraumatic and hearing grossly normal bilaterally HEAD & SCALP: normocephalic and atraumatic Resp: COMMON NORMALS: normal respiratory effort, No retractions and No use of accessory muscles AUSCULTATION: crackles (Few basal crackles) Cardio: COMMON NORMALS: regular rate, regular rhythm and No murmurs present (Cardio) RATE: regular rate RHYTHM: regular rhythm GI: COMMON NORMALS: Soft to palpation and No hepatosplenomegaly present AUSCULTATION: Yes normoactive bowel sounds PALPATION: Yes Soft to palpation, No Tenderness to palpation present (GI), No Guarding due to palpation present (GI) and Yes No hepatosplenomegaly present Extremity: COMMON NORMALS: normal to inspection, capillary refill normal, no clubbing, cyanosis or edema, no calf tenderness and no pedal edema Neuro: SENSORIUM/ORIENTATION: Yes oriented to person, Yes oriented to place and Yes oriented to time Skin: COMMON NORMALS: no rashes or lesions noted GENERAL SKIN EXAM: no r ashes or lesions noted Course Vital Signs: Vital signs: Vital Signs Temperature 98.1 F 12/23/21 10:41 Pulse Rate 78 12/23/21 13:28 Respiratory Rate 23 H 12/23/21 13:28 Blood Pressure 137/87 12/23/21 13:28 Pulse Oximetry 95 12/23/21 13:28 Oxygen Delivery Me thod 12/23/21 12:21 MDM - SOB/Dyspnea Medical Decision Making Patient is orthopnea is a few crackles. He has some wheezing however does not seem to be the rate limiting issues orthopnea seems to be more prominent. Organ to go ahead and discharge him home started on Lasix 40 daily set him up for an outpatient Medical Records I reviewed the patient's medical records. Lab Data I reviewed the patient's lab results. : 12/23/21 10:50 12/23/21 12:25 Labs/Radiology: Radiology Impressions Chest X-Ray 12/23/21 10:41 IMPRESSION: 1. 13 mm pulmonary nodule left mid lung. This was noted on the prior CT dated 03-23-20. Correlate. Consider follow-up CT. 2. Lungs are well aerated without a focal area of consolidation. Laboratory Results WBC 8.5 10^3/uL (4.0-10.0) 12/23/21 10:50 RBC 3.94 10^6/uL (4.1-5.3) L 12/23/21 10:50 Hgb 13.8 g/dL (11.7-16.6) 12/23/21 10:50 Hct 43.6 % (42.0-52.0) 12/23/21 10:50 MCV 110.7 fl (80-94) H 12/23/21 10:50 MCH 35.0 pg (28.0-34.0) H 12/23/21 10:50 MCHC 31.7 g/dL (30.0-36.0) 12/23/21 10:50 RDW 21.1 % (12.1-15.1) H 12/23/21 10:50 Plt Count 302 10^3/cmm (130-400) 12/23/21 10:50 MPV 9.3 fL (7.4-10.4) 12/23/21 10:50 Neut % (Auto) 63.5 % 12/23/21 10:50 Lymph % (Auto) 18.8 % 12/23/21 10:50 Fisher % (Auto) 10.2 % 12/23/21 10:50 Eos % (Auto) 5.3 % 12/23/21 10:50 Baso % (Auto) 2.0 % 12/23/21 10:50 Neut # (Auto) 5.41 10^3/uL (1.8-7.7) 12/23/21 10:50 Lymph # (Auto) 1.6 10^3/uL (0.8-4.8) 12/23/21 10:50 Fisher # (Auto) 0.9 10^3/uL (0.2-0.9) 12/23/21 10:50 Eos # (Auto) 0.5 10^3/uL (0.0-0.8) 12/23/21 10:50 Baso # (Auto) 0.2 10^3/uL (0.0-0.1) H 12/23/21 10:50 Nucleated RBC % (auto) 0 % 12/23/21 10:50 Nucleated RBCs # 0.0 /100WBC 12/23/21 10:50 Sodium 139 mmol/L (136-145) 12/23/21 12:25 Potassium 3.7 mmol/L (3.5-5.1) 12/23/21 12:25 Chloride 105 mmol/L (98-107) 12/23/21 12:25 Carbon Dioxide 25 mmol/L (22-29) 12/23/21 12:25 Anion Gap 12.7 (5-19) 12/23/21 12:25 BUN 6 mg/dL (8-23) L 12/23/21 12:25 Creatinine 0.7 mg/dL (0.7-1.2) 12/23/21 12:25 GFR Calculation Not Reportable 12/23/21 12:25 Glucose 87 mg/dL (65-115) 12/23/21 12:25 Calculated Osmolality 285 mOsm/kg (285-295) 12/23/21 12:25 Calcium 8.7 mg/dL (8.5-10.5) 12/23/21 12:25 Total Bilirubin 0.5 mg/dL (0.15-1.2) 12/23/21 12:25 AST 14 U/L (0-40) 12/23/21 12:25 ALT 15 U/L (0-41) 12/23/21 12:25 Alkaline Phosphatase 126 IU/L (40-130) 12/23/21 12:25 Total Protein 6.0 g/dL (6.6-8.7) L 12/23/21 12:25 Albumin 3.2 g/dL (3.5-5.2) L 12/23/21 12:25 Globulin 2.8 g/dL (1.3-4.6) 12/23/21 12:25 Discharge Plan Discharge Patient Disposition: Home Clinical Impression: Congestive heart failure Condition: Stable Prescriptions: New Lasix 40 mg tablet 40 mg PO DAILY Qty: 20 0RF No Action aspirin [Adult Aspirin Regimen] 81 mg tablet,delayed release (DR/EC) 81 mg PO DAILY omeprazole 40 mg capsule,delayed release(DR/EC) 40 mg PO DAILY simvastatin 10 mg tablet 10 mg PO DAILY losartan 50 mg tablet 50 mg PO DAILY amlodipine 5 mg tablet 5 mg PO DAILY diclofenac sodium 75 mg tablet,delayed release (DR/EC) 75 mg PO Q12H PRN (Reason: pain) Qty: 60 0RF Breo Ellipta 200-25 mcg/dose blister with device 1 inh INHALATION DAILY Qty: 60 3RF Discharge Orders: Discharge ED (Routine); Ordered 12/23/21 Ordered By: Buddy Maya Referrals: Bryson Jama MD [Primary Care Provider] - Discharge Diet: Cardiac Discharge Activity: Limit activity as instructed Patient Instructions: Opioid Safety Activity Restrictions/Additional Instructions: Lasix 40 mg daily recheck with your primary care doctor in 2 to 3 days. Coding Level of Care Code ED [employer] Supervisor for Sumaya Stein
[2021-12-23] MEDS: FUROsemide 10 mg/mL SDV 4mL 40 MG IVP (12:22)
[2021-12-23 13:15] LABS: Alanine Aminotransferase 15 U/L (0-41); Albumin Level 3.2 g/dL (3.5-5.2); Alkaline Phosphatase 126 IU/L (40-130); Anion Gap 12.7 (5-19); Aspartate Amino Transferase 14 U/L (0-40); Blood Urea Nitrogen 6 mg/dL (8-23); Calcium 8.7 mg/dL (8.5-10.5); Carbon Dioxide 25 mmol/L (22-29); Chloride 105 mmol/L (98-107); Globulin 2.8 g/dL (1.3-4.6); Glucose 87 mg/dL (65-115); Osmolality Calculated 285 mOsm/kg (285-295); Potassium 3.7 mmol/L (3.5-5.1); Sodium 139 mmol/L (136-145); Total Bilirubin 0.5 mg/dL (0.15-1.2)
--- NOTE | 2022-01-02 08:11 | DCPLANNER ---
Addendum entered by Lamar Esparza 01/19/22 14:10: Patient had a follow up appointment scheduled for 01.12.22 for an echo - patient did attend appointment. Addendum entered by Lamar Esparza 01/04/22 15:41: Patient has a follow up appointment scheduled for Saturday, January 12, 2022 at 2:30 for an out patient echo cardiogram. Centralized scheduling will call patient with appointment information. Original Note: retail bakery manager had message to schedule an outpatient echocardiogram for patient. retail bakery manager faxed signed order to centralized scheduling, who will call patient with appointment information.
== END 2021-12-23 13:29 | disposition home or self-care (01) ==
PROVIDERS: Emergency Provider Family Medicine; PCP Family Medicine
DX: I11.0 Hypertensive heart disease with heart failure (principal); I50.9 Heart failure, unspecified; Z79.82 Long term (current) use of aspirin; J44.9 Chronic obstructive pulmonary disease, unspecified; E78.5 Hyperlipidemia, unspecified; F17.210 Nicotine dependence, cigarettes, uncomplicated
CPT/HCPCS: 71045; 80053; 85025; 93005; 96374; 99285; J1940

== ENCOUNTER 2022-01-12 14:05 | Outpatient (CLI) | payer MEDICARE, OTHER, SELFPAY ==
--- NOTE | 2022-01-12 14:15 | USCV_ITS ---
Phill Felder Age: 77 Gender: M : 1945 Exam Date: 01/12/2022 14:39 Ordering Phys: Buddy Maya DO Technologist: BUSHRA Exam Location: [facility] Indication: Congestive heart failure BP: 133 / 70 HR: 69 Rhythm: Sinus Technical Quality: adequate MEASUREMENTS (Male / Female) Normal Values 2D ECHO LV Diastolic Diameter PLAX 4.6 cm 4.2 - 5.9 / 3.9 - 5.3 cm LV Systolic Diameter PLAX 3.0 cm IVS Diastolic Thickness 1.1 cm 0.6 - 1.0 / 0.6 - 0.9 cm IVS Systolic Thickness 1.4 cm LVPW Diastolic Thickness 0.8 cm 0.6 - 1.0 / 0.6 - 0.9 cm LVPW Systolic Thickness 1.3 cm LVOT Diameter 2.0 cm LV Ejection Fraction 2D Teich 63.8 % LV Ejection Fraction MOD 2C 61.4 % LV Ejection Fraction 2C AL 63.6 % LA Diameter 3.2 cm RA Width 3.7 cm RA Height 5.1 cm Aorta at Sinotubular Diameter 3.0 cm M-MODE MV E Point Septal Separation 0.3 cm DOPPLER AV Peak Velocity 100.0 cm/s LVOT Peak Velocity 89.0 cm/s AV Area Cont Eq vti 3.1 cm squared AV Area Cont Eq pk 2.9 cm squared MV Peak Velocity 79.0 cm/s MV Area PHT 3.0 cm squared Mitral E to A Ratio 1.0 MV E' Velocity 40.5 cm/s Mitral E to MV E' Ratio 11.9 Mitral E to LV E' Lateral Ratio 13.4 Mitral E to LV E' Septal Ratio 10.9 TR Peak Velocity 238.0 cm/s TR Peak Gradient 22.7 mmHg Right Atrial Pressure 5.0 mmHg Pulmonary Artery Systolic Pressu 27.7 mmHg PV Peak Velocity 80.0 cm/s FINDINGS Left Ventricle Normal left ventricular size, systolic function and wall thickness, with no regional wall motion abnormalities. Left ventricular ejection fraction is estimated at 65 %. Normal diastolic function. Right Ventricle Normal right ventricular size and systolic function. Right ventricular systolic pressure 26 mmHg. Right Atrium Normal right atrial size. Left Atrium Normal left atrial size. Mitral Valve Structurally normal mitral valve. No mitral valve stenosis. Trace mitral valve regurgitation. Aortic Valve Structurally normal trileaflet aortic valve. No aortic valve stenosis. No aortic valve regurgitation. Tricuspid Valve Structurally normal tricuspid valve. No tricuspid valve stenosis. Trace to mild tricuspid valve regurgitation. Pulmonic Valve Structurally normal pulmonic valve. No pulmonary valve stenosis. Trace pulmonary valve regurgitation. Pericardium No pericardial effusion. Aorta Normal size aortic root and proximal ascending aorta. IVC Normal IVC dimension with >50% respiratory change of the inferior vena cava. CONCLUSIONS 1. Normal left ventricular size, systolic function and wall thickness, with no regional wall motion abnormalities. Left ventricular ejection fraction is estimated at 65 %. Normal diastolic function. 2. Trace to mild tricuspid valve regurgitation. 3. Normal pulmonary artery pressure. 4. No prior similar studies to compare. Soila Pretty MD (Electronically Signed) Final Date: 12 January 2022 18:43 S
== END 2022-01-12 14:06 | disposition home or self-care (01) ==
LOC: RAD 14:06
PROVIDERS: PCP Family Medicine; Visit Provider Family Medicine
DX: I50.9 Heart failure, unspecified (principal); I08.1 Rheumatic disorders of both mitral and tricuspid valves
CPT/HCPCS: 93306